=== PATIENT | male | born 1960 | race African-American/Black ===

== ENCOUNTER → 2018-04-25 | Outpatient (CLI) | payer OTHER ==
[~2018-04-25] VITALS: Ht 180.3 cm; Wt 136.1 kg
[~2018-04-25] MED LIST: ACYCLOVIR 800800 MG PO; ASPIR 8181 MG PO; ATENOLOL 25 MG25 M1 PO; NOHOMEMEDICATIONS; NORVASC10 MG PO; PREDNISONE 10 M10 M1 PO; TYLENOL EXTRA500 MG PO
--- NOTE | 2018-04-25 13:44 | EKG ---
[place] [address] 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1960 Requested By: Theresa Montague Order Number: [id number] MD: Raymon Alvarenga Measurements Intervals [place] Rate: 69 P: 21 [place]: 305 QRS: -47 QRSD: 94 T: 27 QT: 396 QTc: 425 Interpretive Statements Sinus rhythm First-degree AV block Left atrial enlargement Possible LAFB Compared to ECG 11/07/2009 16:08:54 First-degree AV block more pronounced Electronically Signed On 04-25-2018 13:43:56 WELDING ENGINEER by Raymon Alvarenga [email or web address] ��������������������������������������������� <ELECTRONICALLY SIGNED> ���������������������������������������� By: Raymon Alvarenga MD ��������������������������������������������� 04/25/18 1343 1001 100 Raymon Alvarenga MD /EPI
--- NOTE | 2018-04-26 12:36 | P ---
[facility] [place] [address] PROCEDURE REPORT Name: ARY PEMBERTON Room #: REG [facility]#: [id number] Admission: 04/25/18 ������������������ Attend Phys: Heath Mariscal MD Discharge: ������������������ Date of : 64 Report #: [id number] THIS REPORT FOR: //name// CC: Heath Smith BRIEF HISTORY: The patient is a 57-year-old male here for his first average risk screening colonoscopy. PREOPERATIVE DIAGNOSIS: Average risk screening colonoscopy. POSTOPERATIVE DIAGNOSES: 1. Diminutive rectal polyp. 2. Moderate left-sided diverticulosis coli. MEDICATIONS: Deep sedation with propofol per anesthesia. SPECIMEN: Rectal polyp. ESTIMATED BLOOD LOSS: 3 mL. PROCEDURE: Colonoscopy to cecum and terminal ileum with biopsy. FINDINGS: Prior to propofol sedation, procedure of colonoscopy discussed with the patient as well as potential risks and its complications. He indicates he understands and desires to proceed. DESCRIPTION OF PROCEDURE: With the patient in left lateral decubitus position, digital examination was completed, which revealed no abnormalities. Subsequently, the Olympus video colonoscope was introduced in the rectum, advanced under direct vision to the cecum. The scope was advanced fairly easily and the cecum was identified by the ileocecal valve and the appendiceal orifice. I was able to visualize the distal segment of the terminal ileum, which was noted to be unremarkable. At that point, the scope was slowly withdrawn and careful circumferential views obtained. Upon slow withdrawal of the scope, there were noted to be some limitations of prep. There was some scattered vegetable material around the colon. Much of this we are able to aspirate away, but several because of the size we could not aspirate. We irrigated and distended the colon and were able to displace much of this material, but not every last bit of it. Almost all the cecum was visualized except there was a pool, which could not be removed and there were some limitations. No obvious mass lesions were seen. Again, as we withdrew the scope, we did our best to clean up the colon. The ascending colon, transverse colon and descending colon were fairly well visualized. However, there was some material in the sigmoid colon and we were able to remove much, but not every last bit of it. There were some small areas that were not fully visualized. There was noted to be [address] [address] PROCEDURE REPORT Name: ARY PEMBERTON Room #: REG [facility]#: [id number] Admission: 04/25/18 ������������������ Attend Phys: Heath Mariscal MD Discharge: ������������������ Date of : 64 Report #: [id number] diverticular disease without endoscopic evidence of diverticulitis in the descending colon and sigmoid colon. Scope was withdrawn in the rectum and also a small amount of material remained. However, a diminutive polyp was seen in the very distal rectum. It had an adenomatous appearance and was removed with biopsy forceps. Upon retroflexion, no additional lesions were seen. Scope was withdrawn. The patient tolerated the is well. CONDITION OF THE PATIENT UPON DISCHARGE: Following procedure, the patient drowsy, arousable. He will be discharged home when fully ambulatory. INSTRUCTIONS TO THE PATIENT AND FAMILY AT THE TIME OF DISCHARGE: One polyp removed as described above. There were some limitations of the prep. ____ areas limitations were fairly limited. We will follow up on the path. However, in view of the finding of a polyp and limitations of prep, I would suggest he return for followup colonoscopy in about 1 year. He will otherwise return to the care of Dr. Irena Smith. This is the patient's first colonoscopy. Withdrawal time from cecum was 13 minutes and 19 seconds. ��������������������������������������������� <ELECTRONICALLY SIGNED> ���������������������������������������� By: Heath Mariscal MD ��������������������������������������������� 04/26/18 1236 1000 10 Heath Mariscal MD /nt
--- NOTE | 2018-05-02 15:23 | PATH ---
[facility] [address] [place] [address] PATHOLOGY RPT PROCEDURE Name: ARY CALIX Room #: REG [facility].#: [id number] ������������������ Admission: 04/25/18 ������������������ Date of : 64 Discharge: Report #: [id number] Path Case #: [id number] [facility] Accession Number: [id number] . 01 Material submitted: . POLYP AT RECTUM . 01 Clinical history: . Screening, rectal polyp, diverticulosis. . 02 Diagnosis: Polyp, at rectum, endoscopic biopsy: - Inflamed hyperplastic polyp. - Negative for dysplasia. ([facility]; 04/28/2018) QMS/04/28/2018 . 02 Electronically signed: . Marlene Galicia MD, Pathologist NPI- [id number] . 01 Gross description: . Received in formalin labeled "Ary Calix, polyp at rectum" is a 0.3 x 0.3 x 0.2 cm fragment of higuera-brown mucosa. The specimen is submitted in cassette A1. ([facility]; 04/27/2018) SYC/SYC . 02 Pathologist provided ICD-10: K62.1 . 02 CPT . 167215 Specimen Comment: Report sent to / DR YAÑEZ Specimen Comment: A duplicate report has been generated due to demographic updates. Performed at: [address], [place] [id number] MD Aakash Sebastian MD Phone: [phone] Performed at: [address] [id number] MD Marlene Galicia MD Phone: [phone]
== END | disposition home or self-care (01) ==
LOC: GI 07:33
DX: Z12.11 Encounter for screening for malignant neoplasm of colon (principal); K63.5 Polyp of colon; K57.30 Diverticulosis of large intestine without perforation or abscess without bleeding; G47.30 Sleep apnea, unspecified; I10 Essential (primary) hypertension; Z87.891 Personal history of nicotine dependence; Z98.890 Other specified postprocedural states; Z90.49 Acquired absence of other specified parts of digestive tract; Z79.899 Other long term (current) drug therapy; Z79.82 Long term (current) use of aspirin
CPT/HCPCS: 62110; 62900